=== PATIENT | male | born 1975 | race Two or more races ===

== ENCOUNTER 2017-06-12 16:42 | Emergency (ER) | payer OTHER ==
[~2017-06-12] VITALS: Ht 167.6 cm; Wt 82.7 kg
[2017-06-12] MEDS ORDERED: IBUPROFEN 800 MG TAB PO ONE (17:15)
[2017-06-12] MEDS ORDERED: LIDOCAINE 2% MDV 20 ML VIAL SC ONE (17:15)
[2017-06-12] MEDS ORDERED: ADACEL/BOOSTRIX VACCINE (DIPHTH/PERTUSS/ACELL/TETANUS)0.5ML SYR (90715) IM ONE (17:30)
--- NOTE | 2017-06-12 18:10 | REP ---
Mandible series, complete: 06/12/2017. Clinical history: Trauma. Four views are provided. Findings: Mandibular condyles articulate with the condylar fossa on both sides without evidence of fracture of the condyles, rami or alveolar ridge. Submental region intact. The maxillary region shows no focal lesion. There are degenerative changes in the cervical spine with spondylosis at C4-5 through C6-7. No other findings. Impression. 1. There is no visible or displaced mandibular fracture, subluxation or dislocation of the mandibular condyles from the condylar fossa or other acute finding. Signed by Daron Cedeño MD 06/12/2017 09:27 P
[2017-06-12 18:27] VITALS: BP 153/76
== END 2017-06-12 18:35 | disposition home or self-care (01) ==
LOC: M ED 16:42
DX: S01.81XA Laceration without foreign body of other part of head, initial encounter (principal); Z87.891 Personal history of nicotine dependence; W20.8XXA Other cause of strike by thrown, projected or falling object, initial encounter; Y92.149 Unspecified place in prison as the place of occurrence of the external cause; Y93.89 Activity, other specified; Y99.9 Unspecified external cause status